=== PATIENT | female | born 1960 | race Caucasian/White ===

== ENCOUNTER 2023-09-03 06:00 | Day surgery (SDC) | payer MEDICAID ==
[~2023-09-03] VITALS: Ht 152.4 cm; Wt 70.3 kg
[2023-09-03] MEDS ORDERED: MIDAZOLAM HCL 5 MG/5 ML VIAL ONE (06:43)
[2023-09-03] MEDS ORDERED: MEPERIDINE 100 MG INJ. 100 MG/ML VIAL ONE (06:43)
[2023-09-03] MEDS ORDERED: SIMETHICONE 40 MG/0.6 ML ML ONE (06:43)
[2023-09-03 09:42] VITALS: O2SAT 98
[2023-09-04 10:21] VITALS: BP_SYST 110; PULSE 89; RESP 16
== END 2023-09-03 09:05 | disposition home or self-care (01) ==
LOC: SMU 06:00 → SDS 06:00
PROVIDERS: ATTEND Internal Medicine Gastroenterology
DX: Z12.11 Encounter for screening for malignant neoplasm of colon (principal); D12.2 Benign neoplasm of ascending colon; D12.3 Benign neoplasm of transverse colon; D12.5 Benign neoplasm of sigmoid colon; K62.1 Rectal polyp; K57.30 Diverticulosis of large intestine without perforation or abscess without bleeding; K64.8 Other hemorrhoids; Z79.899 Other long term (current) drug therapy
CPT/HCPCS: 45385; 45380; 88305; 99153; 99152; G0378; J2250; J2175; 45384